=== PATIENT | female | born 1960 | race Caucasian/White ===

== ENCOUNTER 2023-04-23 03:39 | Emergency (ER) | payer BC ==
[2023-04-23 03:44] VITALS: RESP 18; TEMP 97.6
[2023-04-23] MEDS ORDERED: ASPIRIN 81 MG PO STA (04:21)
[2023-04-23] MEDS ORDERED: NITROGLYCERIN SL TABS 0.4 MG TAB SUBLINGUAL STA (04:21)
[2023-04-23 04:53] LABS: Basophils % (A) 0 %; Eosinophils # (A) 0.1 k/uL (0-0.7); Eosinophils % (A) 2 %; HCT 41.2 % (34.0-46.0); HGB 13.6 gm/dL (11.4-16.0); Lymphocytes # (A) 2.3 k/uL (1.0-4.8); Lymphocytes % (A) 40 %; MCV 85.1 fL (80.0-100.0); Mean Platelet Volume 7.8; Monocytes # (A) 0.4 k/uL (0-1.0); Monocytes % (A) 8 %; Neutrophils # (A) 2.7 k/uL (1.3-7.7); Neutrophils % (A) 47 %; Platelet Count 211 k/uL (150-450); RBC 4.84 m/uL (3.80-5.40); RDW 13.3 % (11.5-15.5); WBC 5.7 k/uL (3.8-10.6)
[2023-04-23 05:05] LABS: ALT 31 U/L (4-34); AST 27 U/L (14-36); African American GFR (CKD) >90 (>60 ml/min/1.73 sqM); Albumin 4.2 g/dL (3.5-5.0); Alkaline Phosphatase 61 U/L (38-126); Anion Gap 7 mmol/L; Blood Urea Nitrogen 15 mg/dL (7-17); Calcium 9.2 mg/dL (8.4-10.2); Carbon Dioxide 26 mmol/L (22-30); Chloride 106 mmol/L (98-107); Glucose 109 mg/dL (74-99); Lipase 100 U/L (23-300); Magnesium 2.1 mg/dL (1.6-2.3); Non-African American GFR(CKD) >90 (>60 ml/min/1.73 sqM); Potassium 4.1 mmol/L (3.5-5.1); Sodium 139 mmol/L (137-145); Total Bilirubin 0.3 mg/dL (0.2-1.3); Total Protein 7.2 g/dL (6.3-8.2)
[2023-04-23 05:06] LABS: INR 0.9 (<1.2); Prothrombin Time 9.7 sec (9.0-12.0)
[2023-04-23] MEDS ORDERED: KETOROLAC 15 MG/ML 1 ML VIAL IVP STA (05:45)
[2023-04-23] MEDS ORDERED: MAG HYDROX/AL HYDROX/SIMETH 30 ML, HYOSCYAMINE ELIXIR 10 ML, LIDOCAINE 2% GLYDO JELLY 1... PO STA ×3 (05:46)
--- NOTE | 2023-04-23 06:08 | ED ---
General Adult HPI - General Source: patient, RN notes reviewed Mode of arrival: wheelchair Limitations: no limitations <Rick Cam - Last Filed: 04/23/23 07:29> <Chris Cuevas - Last Filed: 04/23/23 07:48> - General Chief complaint: Chest Pain Stated complaint: Chest Pain Time Seen by Provider: 04/23/23 03:48 - History of Present Illness Initial comments: Patient is a 62-year-old female presents to the emergency department complaining of chest pain. Has a past medical history remarkable for hyperlipidemia. States she has had a sternal chest pain for the last 3 days. It is intermittent with no known palliative or provocative factors. Typically resolves with Tylenol administration. Denies any shortness breath, fevers, chills, cough, abdominal pain, diarrhea, nausea, vomiting. Has no other associated symptoms. Uncertain was causing her pain this evening, and states that she wanted to be ev aluated. States she came in because she woke up with the pain. It did not resolve with Tylenol like it did previously. No known cardiac history. Heart disease runs in her family. Presents for further evaluation. She is a nonsmoker. (Rick Cam) - Related Data Home Medications Medication Instructions Recorded Confirmed Multivitamins, Thera [Multivitamin 1 tab PO DAILY 04/23/23 04/23/23 (formulary)] Premium-3 Fatty Acids [Premium-3] 1,000 mg PO DAILY 04/23/23 04/23/23 Pravastatin Sodium [Pravachol] 20 mg PO DIRECTED@2100 04/23/23 04/23/23 estradioL [Imvexxy] 4 mcg VAGINAL DIRECTED 04/23/23 04/23/23 Allergies Allergy/AdvReac Type Severity Reaction Status Date / Time Sulfa (Sulfonamide Allergy See comment Verified 04/23/23 06:51 Antibiotics) sulfamethoxazole AdvReac See comment Verified 04/23/23 06:51 [From Bactrim] trimethoprim [From Bactrim] AdvReac See comment Verified 04/23/23 06:51 Review of Systems ROS Other: All systems not noted in ROS Statement are negative. <Rick Cam - Last Filed: 04/23/23 07:29> ROS Other: All systems not noted in ROS Statement are negative. <Chris Cuevas - Last Filed: 04/23/23 07:48> ROS Statement: Those systems with pertinent positive or pertinent negative responses have been documented in the HPI. Review of Systems: CONST: Denies fever EYES: Denies blurry vision ENT: Denies nasal congestion C/V: Endorses chest pain RESP: Denies shortness of breath GI: Denies abdominal pain : Denies dysuria SKIN: Denies rash. MSK: Denies joint pain. NEURO: Denies headache (Rick Cam) Past Medical History Past Medical History: Hyperlipidemia History of Any Multi-Drug Resistant Organisms: None Reported Past Surgical History: Appendectomy, Orthopedic Surgery Past Psychological History: No Psychological Hx Reported Smoking Status: Former smoker Past Alcohol Use History: Occasional Past Drug Use History: None Reported <Rick Cam - Last Filed: 04/23/23 07:29> General Exam Limitations: no limitations <Rick Cam - Last Filed: 04/23/23 07:29> Course Vital Signs 04/23/23 04/23/23 04/23/23 03:42 04:16 04:40 Temperature 97.6 F Pulse Rate 83 77 Pulse Rate [ 80 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 sent in by a medical professional or institution (, PA, WORKFORCE ADVISOR, urgent care, hospital, or half-way...) When possible be specific @ -No Did you speak to anyone other than the patient for history (EMS, parent, family, police, friend...)? What history was obtained from this source @ -No Did you review nursing and triage notes (agree or disagree)? Why? @ -I reviewed and agree with nursing and triage notes Were old charts reviewed (outside hosp., previous admission, EMS record, old EKG, old radiological studies, urgent care reports/EKG's, half-way records)? Report findings @ -No old charts were reviewed Differential Diagnosis (chest pain, altered mental status, abdominal pain women, abdominal pain men, vaginal bleeding, weakness, fever, dyspnea, syncope, headache, dizziness, GI bleed, back pain, seizure, CVA, palpatations, mental health, musculoskeletal)? @ -Differential Chest Pain: Stable Angina, Unstable Angina, STEMI, NSTEMI Aortic Dissection, Pneumothorax, Musculoskeletal, Esophageal Spasm GERD, Cholecystitis, Pancreatitis, Zoster, this is not meant to be an all-inclusive list. EKG interpreted by me (3pts min.). @ -As above X-rays interpreted by me (1pt min.). @ -Chest x-ray shows no obvious acute cardio pulmonary process. CT interpreted by me (1pt min.). @ -None done U/S interpreted by me (1pt. min.). @ -None done What testing was considered but not performed or refused? (CT, X-rays, U/S, la bs)? Why? @ -None What meds were considered but not given or refused? Why? @ -None Did you discuss the management of the patient with other professionals (professionals i.e. , PA, WORKFORCE ADVISOR, lab, RT, psych nurse, psychosocial rehabilitation counselor, service desk associate, teacher, commercial credit officer, immigration case worker)? Give summary @ -No Was smoking cessation discussed for >3mins.? @ -No Was critical care preformed (if so, how long)? @ -No Were there social determinants of health that impacted care today? How? (Homelessness, low income, unemployed, alcoholism, drug addiction, transportation, low edu. Level, literacy, decrease access to med. care, fci, rehab)? @ -No Was there de-escalation of care discussed even if they declined (Discuss DNR or withdrawal of care, Hospice)? DNR status @ -No What co-morbidities impacted this encounter? (DM, HTN, Smoking, COPD, CAD, Cancer, CVA, ARF, Chemo, Hep., AIDS, mental health diagnosis, sleep apnea, morbid obesity)? @ -None Was patient admitted / discharged? Hospital course, mention meds given and route, prescriptions, significant lab abnormalities, going to OR and other pertinent info. @ -Based on the patient's presentation and physical exam, patient presents with somewhat atypical chest pain for the last few days. We'll obtain cardiac only workup. She was in agreement with this plan. Vital signs within acceptable limits. It is substernal in nature, and we will attempt nitro tablets as well as aspirin for pain relief. She was in agreement this plan. She received nitro tablets and 324 mgs of aspirin. EKG shows no signs of acute ischemia. Chest x-ray is unremarkable. Labs are remarkable for a normal d-dimer. Troponin is undetectable. On reevaluation, patient's chest pain is relatively unchanged. Expand when she woke up, but does not attribute any significant improvement to the nitro glycerin tablets. I did discuss at this time the patient's workup with her. I did offer her admission, however I do believe it is reasonable to repeat a troponin discharge it is negative as patient's heart score is low at 2. She was in agreement with this plan. Repeat troponin still pending. Patient signed out to . Undiagnosed new problem with uncertain prognosis? @ -No Drug Therapy requiring intensive monitoring for toxicity (Heparin, Nitro, Insulin, Cardizem)? @ -No Were any procedures done? @ -No (Rick Cam) Patient is sent out to me by previous shift physician, Dr. Cam. Briefly, patient is a 62-year-old female presents emergency department with atypical chest pain typical features. Labs were reviewed. CBC metabolic panel is unremarkable. Patient signed out to me pending second troponin and determination of final disposition. Second troponin is negative. Patient reevaluated bedside states that she is asymptomatic. She is advised follow-up with primary care doctor for outpatient management of chest pain. Return precautions discussed. (Chris Cuevas) - Lab Data Lab Results 04/23/23 04/23/23 04/23/23 Range/Units 04:35 04:35 04:35 WBC 5.7 (3.8-10.6) k/uL RBC 4.84 (3.80-5.40) m/uL Hgb 13.6 (11.4-16.0) gm/dL Hct 41.2 (34.0-46.0) % MCV 85.1 (80.0-100.0) fL MCH 28.0 (25.0-35.0) pg MCHC 33.0 (31.0-37.0) g/dL RDW 13.3 (11.5-15.5) % Plt Count 211 (150-450) k/uL MPV 7.8 Neutrophils % 47 % Lymphocytes % 40 % Monocytes % 8 % Eosinophils % 2 % Basophils % 0 % Neutrophils # 2.7 (1.3-7.7) k/uL Lymphocytes # 2.3 (1.0-4.8) k/uL Monocytes # 0.4 (0-1.0) k/uL Eosinophils # 0.1 (0-0.7) k/uL Basophils # 0.0 (0-0.2) k/uL PT 9.7 (9.0-12.0) sec INR 0.9 (<1.2) APTT 24.0 (22.0-30.0) sec D-Dimer 0.41 (<0.60) mg/L FEU Sodium 139 (137-145) mmol/L Potassium 4.1 (3.5-5.1) mmol/L Chloride 106 (98-107) mmol/L Carbon Dioxide 26 (22-30) mmol/L Anion Gap 7 mmol/L BUN 15 (7-17) mg/dL Creatinine 0.68 (0.52-1.04) mg/dL Est GFR (CKD-EPI)AfAm >90 (>60 ml/min/1.73 sqM) Est GFR (CKD-EPI)NonAf >90 (>60 ml/min/1.73 sqM) Glucose 109 H (74-99) mg/dL Calcium 9.2 (8.4-10.2) mg/dL Magnesium 2.1 (1.6-2.3) mg/dL Total Bilirubin 0.3 (0.2-1.3) mg/dL AST 27 (14-36) U/L ALT 31 (4-34) U/L Alkaline Phosphatase 61 (38-126) U/L Troponin I (0.000-0.034) ng/mL Total Protein 7.2 (6.3-8.2) g/dL Albumin 4.2 (3.5-5.0) g/dL Lipase 100 (23-300) U/L 04/23/23 04/23/23 Range/Units 04:35 06:19 WBC (3.8-10.6) k/uL RBC (3.80-5.40) m/uL Hgb (11.4-16.0) gm/dL Hct (34.0-46.0) % MCV (80.0-100.0) fL MCH (25.0-35.0) pg MCHC (31.0-37.0) g/dL RDW (11.5-15.5) % Plt Count (150-450) k/uL MPV Neutrophils % % Lymphocytes % % Monocytes % % Eosinophils % % Basophils % % Neutrophils # (1.3-7.7) k/uL Lymphocytes # (1.0-4.8) k/uL Monocytes # (0-1.0) k/uL Eosinophils # (0-0.7) k/uL Basophils # (0-0.2) k/uL PT (9.0-12.0) sec INR (<1.2) APTT (22.0-30.0) sec D-Dimer (<0.60) mg/L FEU Sodium (137-145) mmol/L Potassium (3.5-5.1) mmol/L Chloride (98-107) mmol/L Carbon Dioxide (22-30) mmol/L Anion Gap mmol/L BUN (7-17) mg/dL Creatinine (0.52-1.04) mg/dL Est GFR (CKD-EPI)AfAm (>60 ml/min/1.73 sqM) Est GFR (CKD-EPI)NonAf (>60 ml/min/1.73 sqM) Glucose (74-99) mg/dL Calcium (8.4-10.2) mg/dL Magnesium (1.6-2.3) mg/dL Total Bilirubin (0.2-1.3) mg/dL AST (14-36) U/L ALT (4-34) U/L Alkaline Phosphatase (38-126) U/L Troponin I <0.012 <0.012 (0.000-0.034) ng/mL Total Protein (6.3-8.2) g/dL Albumin (3.5-5.0) g/dL Lipase (23-300) U/L - EKG Data EKG Comments: 12-lead Electrocardiogram Interpretation Note EKG was reviewed and interpreted by myself. 12-lead ECG performed at 0356 is interpreted by me as revealing normal sinus rhythm at a rate of 75 beats per minute. [place] is normal. [place] interval is 160 ms, QRS duration is 81 ms, QTc is 392 ms.. There were no ST or T wave abnormalities to suggest myocardial ische katherine or injury. R wave progression across the precordium was satisfactory. By my interpretation this EKG is non-diagnostic for acute ischemia. (Rick Cam) Disposition <Rick Cam - Last Filed: 04/23/23 07:29> Is patient prescribed a controlled substance at d/c from ED?: No Time of Disposition: 07:48 <Chris Cuevas - Last Filed: 04/23/23 07:48> Clinical Impression: Chest pain Disposition: HOME SELF-CARE Condition: Good Instructions (If sedation given, give patient instructions): Chest Pain (ED) Referrals: Kwame Traore MD [Primary Care Provider] - 1-2 days
--- NOTE | 2023-04-23 07:27 | XR ---
EXAMINATION TYPE: XR chest 2V DATE OF EXAM: 04/23/2023 COMPARISON: None HISTORY: 62-year-old female with chest pain TECHNIQUE: PA and lateral views FINDINGS: Heart normal size. Aorta and pulmonary vasculature within normal limits. Mild hyperinflation may rela te to aspiration. Subtle 8 mm nodularity periphery of the left upper lobe can be further evaluated with a nonemergent f ollow-up CT chest to exclude a suspicious pulmonary nodule. Otherwise, no consolidation or effusion. IMPRESSION: Hyperinflation may relate to depth of inspiration or underlying emphysema. No acute process seen. Fol low-up nonemergent CT chest to exclude a possible 8 mm left upper lobe pulmonary nodule.
[2023-04-23 07:44] VITALS: BP 122/73; PULSE 68
== END 2023-04-23 08:08 | disposition home or self-care (01) ==
LOC: EC 03:39
DX: R07.89 Other chest pain (principal); E78.5 Hyperlipidemia, unspecified; Z87.891 Personal history of nicotine dependence; Z88.2 Allergy status to sulfonamides; Z79.899 Other long term (current) drug therapy
CPT/HCPCS: 36415; 85379; 80053; 83690; 83735; 84484; 85025; 85610; 85730; 71046; 99285; 96374; J1885; 93005